=== PATIENT | female | born 1995 | race Caucasian/White ===

== ENCOUNTER 2018-09-22 03:59 | Inpatient (IN) | payer OTHER ==
[2018-09-22] MEDS ORDERED: CARBOPROST 250 MCG INJ IM ×2 (05:00→11:00)
[2018-09-22] MEDS ORDERED: IBUPROFEN 600 MG TAB PO (05:00)
[2018-09-22] MEDS ORDERED: METHYLERGONOVINE 0.2 MG INJ IM ×2 (05:00→11:00)
[2018-09-22] MEDS ORDERED: OXYTOCIN 30 UNITS/LR 500 ML IV ×2 (05:00→11:00)
[2018-09-22] MEDS ORDERED: OXYCODONE/ACETAMINOPHEN (5/325) TAB PO (05:00)
[2018-09-22 05:48] LABS: ADD UMIC YES; UR ASCORBIC ACID NEGATIVE (NEGATIVE); UR BILIRUBIN (Dip) NEGATIVE (NEGATIVE); UR BLOOD (Dip) 1+ mg/dL (NEGATIVE); UR CLARITY CLEAR (CLEAR); UR COLOR YELLOW (YELLOW); UR GLUCOSE (Dip) NEGATIVE (NEGATIVE); UR KETONES (Dip) NEGATIVE (NEGATIVE); UR LEUKOCYTE ESTERASE (Dip) NEGATIVE Leu/ul (NEGATIVE); UR NITRITE (Dip) NEGATIVE (NEGATIVE); UR RBC 1 /HPF (0-5); UR SPECIFIC GRAVITY (Dip) 1.011 (1.003-1.030); UR TOTAL PROTEIN (Dip) NEGATIVE (NEGATIVE); UR UROBILINOGEN (Dip) NEGATIVE (NEGATIVE); UR WBC 1 /HPF (0-5)
[2018-09-22 05:56] LABS: RUPTURE FETAL MEMBRANES NEGATIVE (NEGATIVE)
[2018-09-22] MEDS: LACTATED RINGER'S 1,000 ML IV ×2 (06:23→07:58)
[2018-09-22 06:36] LABS: ADD MAN DIFF? NO
[2018-09-22 06:37] LABS: WHITE BLOOD COUNT 15.8 10^3/ul (4.8-10.8)
[2018-09-22 06:37] LABS: BASOPHILS % 0.3 % (0.0-2.0); EOSINOPHILS % 0.1 % (0.0-7.0); HEMATOCRIT 41.2 % (37.0-47.0); HEMOGLOBIN 13.8 g/dl (12.0-16.0); LYMPHOCYTES % 12.4 % (15.0-51.0); MEAN CORPUSCULAR HGB CONC 33.5 g/dl (32.0-37.0); MEAN CORPUSCULAR VOLUME 92.6 fl (82.0-101.0); MEAN PLATELET VOLUME 10.3 fl (7.4-10.4); MONOCYTE # 0.4 10^3/ul (0.3-0.9); MONOCYTES % 2.7 % (0.0-11.0); NEUTROPHIL # 13.2 10^3/ul (1.6-7.5); NEUTROPHILS % 83.9 % (39.0-77.0); PLATELET COUNT 169 10^3/UL (140-415); RED BLOOD COUNT 4.45 10^6/ul (4.20-5.40); RED CELL DISTRIBUTION WIDTH 13.2 % (11.5-14.5)
[2018-09-22 06:57] LABS: PARTIAL THROMBOPLASTIN TIME 25.5 Sec (23.0-35.0); PROTIME 11.2 Sec (11.9-14.9); PT RATIO 0.9
[2018-09-22] MEDS: BUTORPHANOL 2 MG INJ IV (07:11)
[2018-09-22 07:34] LABS: HEPATITIS B SURFACE ANTIGEN NEGATIVE (NEGATIVE)
[2018-09-22] MEDS: LIDOCAINE 1% (MPF) 30 ML INJ INJ (10:06)
[2018-09-22] MEDS: MISOPROSTOL 200 MCG TAB PR (10:06)
[2018-09-22] MEDS ORDERED: ONDANSETRON 4 MG INJ IV (11:00)
[2018-09-22] MEDS ORDERED: MISOPROSTOL 200 MCG TAB PR (11:00)
[2018-09-22] MEDS ORDERED: MAGNESIUM HYDROXIDE 30ML CUP PO (11:00)
[2018-09-22] MEDS ORDERED: ACETAMINOPHEN 325 MG TAB PO ×2 (11:00)
[2018-09-22] MEDS ORDERED: DIBUCAINE 1% 30 GM OINT TOP (11:00)
[2018-09-22] MEDS ORDERED: CEFAZOLIN 2 GM/50 ML (PMX) 50 ML IVPB (11:03)
[2018-09-22] MEDS: OXYTOCIN 30 UNITS/LR 500 ML IV ×3 (11:05→13:35)
[2018-09-22] MEDS: CEFAZOLIN 2 GM/50 ML (PMX) 50 ML IVPB (11:19)
[2018-09-22] MEDS: WITCH HAZEL/GLYCERIN PAD PR (11:32)
[2018-09-22] MEDS: BENZOCAINE 20% 56 ML SPRAY TOP (11:32)
[2018-09-22] MEDS: LANOLIN HPA 1 PKT TOP (13:32)
[2018-09-22] MEDS: IBUPROFEN 600 MG TAB PO (13:33)
[2018-09-22] MEDS: LACTATED RINGER'S 1,000 ML IV* ×2 (13:36→19:00)
[2018-09-22 15:48] LABS: RAPID PLASMA REAGIN NONREACTIVE (NR)
[2018-09-23] MEDS: LACTATED RINGER'S 1,000 ML IV* ×2 (03:00→11:00)
[2018-09-23 07:43] LABS: ADD MAN DIFF? NO
[2018-09-23 07:49] LABS: BASOPHILS % 0.2 % (0.0-2.0); EOSINOPHILS % 0.1 % (0.0-7.0); HEMATOCRIT 32.4 % (37.0-47.0); HEMOGLOBIN 10.6 g/dl (12.0-16.0); LYMPHOCYTES # 3.3 10^3/ul (0.8-2.9); MEAN CORPUSCULAR HEMOGLOBIN 30.6 pg (29.0-33.0); MEAN CORPUSCULAR HGB CONC 32.7 g/dl (32.0-37.0); MEAN CORPUSCULAR VOLUME 93.6 fl (82.0-101.0); MEAN PLATELET VOLUME 10.4 fl (7.4-10.4); MONOCYTE # 0.6 10^3/ul (0.3-0.9); MONOCYTES % 3.8 % (0.0-11.0); NEUTROPHIL # 10.4 10^3/ul (1.6-7.5); NEUTROPHILS % 72.3 % (39.0-77.0); PLATELET COUNT 180 10^3/UL (140-415); RED BLOOD COUNT 3.46 10^6/ul (4.20-5.40); RED CELL DISTRIBUTION WIDTH 13.6 % (11.5-14.5)
[2018-09-23 07:49] LABS: WHITE BLOOD COUNT 14.4 10^3/ul (4.8-10.8)
[2018-09-23] MEDS: SENNA/DOCUSATE NA (8.6MG/50MG) TAB PO (07:55)
[2018-09-23] MEDS: IBUPROFEN 600 MG TAB PO (07:55)
== END 2018-09-24 14:05 | disposition home or self-care (01) | DRG 807 ==
LOC: OBT 03:59 → L-D 04:02 → OBT 04:55 → L-D 05:07 → PP1 12:38
PROC: 10E0XZZ Delivery of Products of Conception, External Approach (ICD-10-PCS; principal; 2018-09-22)
PROC: 0KQM0ZZ Repair Perineum Muscle, Open Approach (ICD-10-PCS; 2018-09-22)
DX: O70.1 Second degree perineal laceration during delivery (principal); Z37.0 Single live birth; Z3A.38 38 weeks gestation of pregnancy
CPT/HCPCS: 76815; 76818; 81001; 84112; 85025; 85610; 85730; 86592; 86850; 86900; 86901; 87340; 88307; 99464